=== PATIENT | female | born 2005 | race Caucasian/White ===

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

== ENCOUNTER 2023-08-30 11:57 | Emergency (ER) | payer BC, OTHER, SELFPAY ==
[2023-08-30 12:10] VITALS: BP 114/63; PULSE 70; RESP 19; TEMP 36.7; O2SAT 97; BMI 30.7
--- NOTE | 2023-08-30 12:14 | XR_ITS ---
FINAL REPORT CLINICAL HISTORY: FELL rolled foot, felt pop FINDINGS: Left foot Three views were obtained. There is no acute fracture or dislocation. The joint spaces appear normal. No soft tissue abnormality is identified. IMPRESSION: No acute process. Reviewed, Interpreted and Dictated by Jose A Valladares MD Transcribed by Zari Calvillo Authenticated and [facility]
--- NOTE | 2023-08-30 12:23 | ED_ITS ---
Discharge Plan Disposition Patient Disposition: Home, Self-Care Condition: Good Prescriptions Prescriptions: No Action medroxyprogesterone [Depo-Provera] 150 mg/mL syringe 150 mg IM [id number] Qty: 1 3RF quetiapine [Seroquel] 100 mg tablet 100 mg PO QHS Qty: 90 0RF sertraline [Zoloft] 100 mg tablet 150 mg PO DAILY Qty: 45 0RF Referrals Follow up/Referrals: Niyah Choi APRN [Primary Care Provider] - See instructions Rowena Zepeda DPM [Staff Physician] - See instructions Activity Restrictions/Add. Instructions Additional Instructions/Restrictions: Rest the extremity, Wear the ramiro wrap for compression, Elevate the extremity as tolerated while you are resting. Take ibuprofen for pain. I sent in a prescription to your pharmacy. Follow up with Dr. Zepeda (podiatry). I put in a referral but you need to call her office and schedule an appointment. Follow up with your regular doctor. GO TO THE ER FOR ANY WORSENING SYMPTOMS Clinical Impressions Clinical Impression: Sprain of left foot, Left foot pain Stand Alone Forms Stand Alone Forms: Work/School Release Instructions Patient Instructions: DI for Foot Sprain Discharge ED Provider: Corbin Garcia [facility] General Stated complaint: ao fell and has left leg pain 08/28 Mode of Arrival: Ambulatory Source of Information: Patient Limitations: No Limitations Time Seen by Provider: 08/30/23 12:23 Description of Symptoms (Recalled from Triage Doc. by RN): PATIENT STATES SHE WAS ROUGH-HOUSING YESTERDAY AND FELL, LANDING ON HER BACK WITH HER LEG BEHIND HER. C/O PAIN, SWELLING AND BRUISING TO LEFT FOOT HEENT Symptoms (Recalled from RN notes): No Resp Symptoms (Recalled from RN notes): No Skin Symptoms (Recalled from RN notes): No MS Symptoms (Recalled from RN notes): Yes Functional Status (Recalled from RN notes): WNL History of Present Illness Provider Complaint: She states that she fell yesterday and twisted her left foot back up beneath her. Since then she has had left foot pain and left ankle pain. She states that walking on the foot makes her pain worse. Related Data Previous Rx's Medication Instructions Recorded medroxyprogesterone 150 mg/mL 150 mg IM [id number] #1 mL 06/15/22 intramuscular syringe (Depo-Provera) quetiapine 100 mg tablet (Seroquel) 100 mg PO QHS #90 tabs 08/02/23 sertraline 100 mg tablet (Zoloft) 150 mg (1.5 x 100 mg) PO DAILY #45 08/02/23 tabs Allergies Allergy/AdvReac Type Severity Reaction Status Date / Time cefdinir [From Omnicef] Allergy Verified 08/06/22 17:08 codeine Allergy Verified 08/06/22 17:08 Worker's Comp Is this a Worker's Comp case?: No PFSH [facility] Disclaimer: The information contained in this section may have been updated after the patient was seen, as this information can be updated by other users. Medical History Generalized anxiety disorder Migraines Mood disorder Social History Smoking Status: Never smoker alcohol intake: never substance use type: marijuana (none in 8 months) current occupational status: other Travel in the last 8 weeks: None number of children: 0 ROS Obtained: Yes All systems reviewed & no additional complaints except as documented Constitutional Constitutional: Denies chills and Denies fever(s) Eyes Eyes: Denies eye discharge ENT Ears, Nose, Mouth, and Throat: Denies dizziness, Denies otalgia and Denies sore throat Cardiovascular Cardiovascular: Denies chest pain Respiratory Respiratory: Denies shortness of breath, Denies chest congestion, Denies cough, Denies stridor and Denies wheezing Gastrointestinal Gastrointestingal: Denies nausea or vomiting Musculoskeletal Musculoskeletal: Reports as per HPI Integumentary/Breasts Skin/Breast: Denies redness, Denies rash and Denies wounds Neurologic Neurologic: Denies dizziness and Denies paresthesias Allergic/Immunologic Allergic/Immunologic: Denies wheezing Physical Exam General General appearance: alert and in no apparent distress Head Head exam: atraumatic, normocephalic and normal inspection Eye Eye exam: Present normal appearance, PERRL and EOMI ENT ENT exam: Present normal exam, normal oropharynx, mucous membranes moist, TM's normal bilaterally and normal external ear exam Neck Neck exam: Present normal inspection, full ROM and trachea midline; Absent meningismus or lymphadenopathy Chest Chest inspection: Present normal inspection and symmetric chest wall rise; Absent tenderness Respiratory Respiratory exam: Present normal lung sounds bilaterally; Absent respiratory distress Cardiovascular Cardiovascular exam: Present regular rate and normal rhythm; Absent JVD Abdominal Exam Abdominal exam: Present soft and normal bowel sounds; Absent distention, tenderness or guarding Extremities Exam Extremities exam: Present normal capillary refill; Absent calf tenderness Expanded Lower Extremity Exam Left: Knee exam: Present normal inspection, full ROM and knee extension intact; Absent tenderness Lower leg exam: Present normal inspection, full ROM and Achilles tendon intact; Absent tenderness or Homans' sign Ankle exam: Present full ROM, tenderness and swelling; Absent abrasion, laceration, ecchymosis, deformity, crepitus, dislocation, erythema, tenderness over talofibular lig or anterior draw sign Foot/toe exam: Present full ROM, tenderness and swelling; Absent abrasion, laceration, ecchymosis, deformity, crepitus, dislocation, erythema, amputation, puncture wound, foreign body, calcaneal tenderness, tenderness at base of 5th m etatarsal, nail avulsion or subungual hematoma Neurovascular/Tendon exam: Present normal capillary refill, normal 2-point discrimination and normal fine/light touch; Absent pulse deficit, motor deficit, sensory deficit, tendon deficit, extremity cold to touch or pallor Gait: observed and normal Back Exam Back exam: Present normal inspection; Absent tenderness Neurological Exam Neurological exam: Present alert and oriented X3 Psychiatric Psychiatric exam: Present normal affect and normal mood Skin Skin exam: Present warm, dry, intact and normal color Lymphatic Lymphatic Findings: no adenopathy Medical Decision Making Medical Records Medical records reviewed: No I reviewed the patient's medical records. Michael Inquiry Pt receiving controlled substance: No Vital Signs: 08/30/23 12:10 Temperature 98.0 F Temperature Source Oral Pulse Rate [Left Brachial] 70 Respiratory Rate 19 Blood Pressure [Left Arm] 114/63 Blood Pressure Mean [Left Arm] 80 Blood Pressure Source [Left Arm] Automatic Cuff Blood Pressure Position [Left Arm] Sitting 02 Sat by Pulse Oximetry 97 Oxygen Delivery Method Room Air Orders (Tests/Meds): ORDERS Category Date Time Status Foot XR left minimum 3 views [XR foot LT min 3V] Stat Exams 08/30/23 12:14 Ordered Radiology Data #1: Image(s): Foot/Toes Image Reviewed: Yes I reviewed the patient's radiology image and Yes I have reviewed radiologist's interpretation Preliminary Findings: Normal/NAD and No Fracture Seen FINAL REPORT CLINICAL HISTORY: FELL rolled foot, felt pop FINDINGS: Left foot Three views were obtained. There is no acute fracture or dislocation. The joint spaces appear normal. No soft tissue abnormality is identified. IMPRESSION: No acute process. Reviewed, Interpreted and Dictated by Jose A Valladares MD Transcribed by Zari Calvillo Authenticated and [facility] Procedures Risk/Benefits of Procedure(s) Were Explained: Yes Orthopedic Splinting/Casting Injury #1: Side: left Lower Extremity Injury Location: ankle and foot Lower Extremity Immobilizer: Ramiro wrap and applied by nurse/dr joshi Post Cast/Splinting Neuro Status: intact and no change Post Cast/Splinting Vasc Status: intact and no change
[2023-08-30 13:45] VITALS: BP 114/63; PULSE 70; RESP 19; TEMP 36.7; O2SAT 97
== END 2023-08-30 13:48 | disposition home or self-care (01) ==
PROVIDERS: Emergency Provider Nurse Practitioner Family; PCP Nurse Practitioner
DX: M79.672 Pain in left foot (principal); S93.602A Unspecified sprain of left foot, initial encounter; X50.1XXA Overexertion from prolonged static or awkward postures, initial encounter
CPT/HCPCS: 73630; 99212; 99214; G0463

== ENCOUNTER 2023-10-10 12:07 | Emergency (ER) | payer BC, OTHER, SELFPAY ==
[2023-10-10 12:20] VITALS: BP 118/80; PULSE 85; RESP 20; TEMP 36.9; O2SAT 100; BMI 29.2
--- NOTE | 2023-10-10 12:27 | EXP.UTC ---
Discharge Plan Disposition Patient Disposition: Home, Self-Care Condition: Good Prescriptions Prescriptions: No Action medroxyprogesterone [Depo-Provera] 150 mg/mL syringe 150 mg IM [id number] Qty: 1 3RF sertraline [Zoloft] 100 mg tablet 150 mg PO DAILY Qty: 45 0RF quetiapine [Seroquel] 100 mg tablet 100 mg PO QHS Qty: 90 0RF Referrals Follow up/Referrals: Niyah Choi APRN [Primary Care Provider] - See instructions Activity Restrictions/Add. Instructions Additional Instructions/Restrictions: *Monitor Temp, Over the counter Motrin or Tylenol as directed/as needed Tylenol every 4 hours and Motrin every 6 hours (as long as your family doctor has told you that you can take it) for fever or pain. and straight to ER if unable to lower temp less than 101.0 after medication given *Warm salt water gargles may help to soothe the throat *Throat Lozenges? *Warm fluids like tea with honey may help to soothe the throat? *Sleep elevated *Humidifier/Vaporizer Your throat swab was sent for culture. Those results are typically sent to your primary care. Be sure to follow up in 2-3 days with your family doctor/primary care physician if no improvement so they can review those result and treat if necessary. If you don?t have a primary care doctor, I recommend you get one but in the mean time, you will have to return to a walk in clinic Follow up IMMEDIATELY for new or worsening symptoms or no Noticeable improvement over the next 48-72 hours. 911 for difficulty breathing or swallowing Clinical Impressions Clinical Impression: Viral upper respiratory infection Stand Alone Forms Stand Alone Forms: Work/School Release Instructions Patient Instructions: Sore Throat Discharge ED Provider: Marium Smith [facility] General Stated complaint: fever, sore throat, body aches Mode of Arrival: Ambulatory Source of Information: Patient Limitations: No Limitations Time Seen by Provider: 10/10/23 12:27 Description of Symptoms (Recalled from Triage Doc. 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 States that she started yesterday with sore throat body aches and headache and today she wasnt feeling any better so she came in to get checked Related Data Previous Rx's Medication Instructions Recorded medroxyprogesterone 150 mg/mL 150 mg IM [id number] #1 mL 06/15/22 intramuscular syringe (Depo-Provera) quetiapine 100 mg tablet (Seroquel) 100 mg PO QHS #90 tabs 09/10/23 sertraline 100 mg tablet (Zoloft) 150 mg (1.5 x 100 mg) PO DAILY #45 09/10/23 tabs Allergies Allergy/AdvReac Type Severity Reaction Status Date / Time cefdinir [From Omnicef] Allergy Verified 08/06/22 17:08 codeine Allergy Verified 08/06/22 17:08 Worker's Comp Is this a Worker's Comp case?: No [facility] Disclaimer: The information contained in this section may have been updated after the patient was seen, as this information can be updated by other users. Medical History (Updated 10/10/23 @ 12:35 by Marium Smith APRN) Urinary tract infection Kidney stone Depression Migraines Generalized anxiety disorder Mood disorder Surgical History (Updated 10/10/23 @ 12:30 by Eliza Panda RN) History of tympanostomy tube placement Social History Smoking Status: Never smoker alcohol intake: never substance use type: marijuana (none in 8 months) current occupational status: other Travel in the last 8 weeks: None number of children: 0 ROS Obtained: Yes All systems reviewed & no additional complaints except as documented and Yes Systems reviewed as appropriate & no additional complaints except as documented Constitutional Constitutional: Reports system reviewed and no additional complaints, except as documented, Reports as per HPI, Reports body ache, Reports fever(s) and Reports headache(s) ENT Ears, Nose, Mouth, and Throat: Reports system reviewed and no additional complaints, except as documented, Reports as per HPI, Reports headache(s) and Reports sore throat Cardiovascular Cardiovascular: Reports system reviewed and no additional complaints, except as documented and Reports as per HPI Respiratory Respiratory: Reports system reviewed and no additional complaints, except as documented and Reports as per HPI Gastrointestinal Gastrointestingal: Reports system reviewed and no additional complaints, except as documented and as per HPI Neurologic Neurologic: Reports headache(s) Physical Exam General General appearance: alert and in no apparent distress ENT ENT exam: Present mucous membranes moist Expanded ENT Exam Nose exam: Absent sinus tenderness Throat exam: Present other (mild pharyngeal erythema noted); Absent tonsillar exudate Respiratory Respiratory exam: Present normal lung sounds bilaterally; Absent respiratory distress or wheezes Cardiovascular Cardiovascular exam: Present regular rate, normal rhythm and normal heart sounds Neurological Exam Neurological exam: Present alert, oriented X3 and normal gait Medical Decision Making Michael Inquiry Pt receiving controlled substance: No Michael was queried for this patient: No Vital Signs: 10/10/23 12:20 Temperature 98.5 F Temperature Source Oral Pulse Rate [Left Brachial] 85 Respiratory Rate 20 Blood Pressure [Left Arm] 118/80 Blood Pressure Mean [Left Arm] 92 Blood Pressure Source [Left Arm] Automatic Cuff Blood Pressure Position [Left Arm] Sitting 02 Sat by Pulse Oximetry 100 Oxygen Delivery Method Room Air Lab Data Lab results reviewed: Yes I reviewed the patient's lab results.
[2023-10-10 12:34] VITALS: BP 118/80; PULSE 85; RESP 20; TEMP 36.9; O2SAT 100
[2023-10-10 12:34] LABS: UTC Influenza A Antigen Negative (Negative); UTC Influenza B Antigen Negative (Negative); UTC Strep Screen (Rapid) Negative (Negative)
== END 2023-10-10 12:39 | disposition home or self-care (01) ==
PROVIDERS: Emergency Provider Nurse Practitioner; PCP Nurse Practitioner
DX: R51.9 Headache, unspecified (principal); R07.0 Pain in throat; R50.9 Fever, unspecified; J06.9 Acute upper respiratory infection, unspecified; B34.9 Viral infection, unspecified
CPT/HCPCS: 87804; 87880; 99212; 99213; G0463

== ENCOUNTER 2023-10-23 16:54 | Outpatient (CLI) | payer BC, OTHER, SELFPAY ==
[2023-10-23 17:18] LABS: Basophils # 0.1 K/mm3 (0-0.2); Eosinophils # 0.5 K/mm3 (0.0-0.4); Eosinophils % 6.5 % (0.1-12.0); Hemoglobin 13.3 g/dL (12.2-16.2); Lymphocytes # 2.6 K/mm3 (0.7-4.5); Lymphocytes % 33.5 % (10-50); Mean Corpuscular HGB Conc 33.3 g/dL (31.8-35.4); Mean Corpuscular Hemoglobin 27.5 pg (27.0-31.2); Mean Corpuscular Volume 82.7 fl (81-99); Mean Platelet Volume 9.1 fl (7.4-10.4); Monocytes # 0.3 K/mm3 (0.1-1.0); Monocytes % 4.3 % (1.7-9.3); Neutrophils # 4.2 K/mm3 (1.8-7.8); Neutrophils % 54.7 % (37.0-80.0); Platelet Count 136 K/mm3 (142-424); Red Blood Count 4.84 M/mm3 (4.20-5.40); White Blood Count 7.7 K/mm3 (4.5-13.0)
[2023-10-23 17:52] LABS: Alanine Aminotransferase 22 U/L (12-78); Albumin/Globulin Ratio 1.5 (1.1-1.8); Alkaline Phosphatase 88 U/L (38-126); Aspartate Amino Transferase 26 U/L (14-36); Bilirubin,Total 0.5 mg/dl (0.2-1.3); Blood Urea Nitrogen 15 mg/dl (7-17); Calcium 9.3 mg/dl (8.4-10.2); Carbon Dioxide 24 mmol/L (22.0-30.0); Chloride 106 mmol/L (98-107); Estimated Glomerular Filt Rate 107 ml/min (>60); GFR (African American) 129 ML/MIN (>60); Globulin 2.7 g/dL (1.3-3.2); Glucose 103 mg/dl (74-100); Sodium 140 mmol/L (136-145); Total Protein,Serum 6.7 g/dl (6.3-8.2)
[2023-10-23 18:40] LABS: Vitamin B12 385 pg/mL (239-931)
[2023-10-23 19:13] LABS: Iron 77 ug/dL (37-170)
[2023-10-23 19:23] LABS: Total Iron Binding Capacity 387 ug/dL (265-497)
[2023-10-23 19:31] LABS: Free Thyroxine Index 2.8 ug/dL (5.93-13.13); T4 (Thyroxine) 8.1 ug/dl (5.53-11.0); Triiodothryronine (T3) Uptake 35 % (23.5-40.5)
[2023-10-23 19:45] LABS: Thyroid Stimulating Hormone 0.97 uIU/mL (0.465-4.68)
[2023-10-25 08:20] LABS: Thyroid Peroxidase Antibodies <9 IU/mL (0-34)
[2023-10-31 09:13] LABS: 1,25 Dihydroxy Vitamin D 74 pg/mL (.); 1,25-Dihydroxy, Vitamin D-2 <10 pg/mL (.); 1,25-Dihydroxy, Vitamin D-3 74 pg/mL (.)
== END 2023-10-23 23:59 | disposition home or self-care (01) ==
LOC: LAB.DROPOF 16:55
PROVIDERS: PCP Nurse Practitioner Psychiatric/Mental Health; Visit Provider Nurse Practitioner Psychiatric/Mental Health
DX: Z00.00 Encounter for general adult medical examination without abnormal findings (principal); Z79.899 Other long term (current) drug therapy; R53.83 Other fatigue; E67.3 Hypervitaminosis D
CPT/HCPCS: 80053; 82607; 82652; 83036; 83540; 83550; 84436; 84443; 84479; 85025; 86376

== ENCOUNTER 2024-06-06 12:41 | Emergency (ER) | payer BC, OTHER, SELFPAY ==
[2024-06-06 14:40] VITALS: BP 116/81; PULSE 79; RESP 20; TEMP 36.6; O2SAT 99; BMI 29.9
[2024-06-06 14:58] LABS: UTC Strep Screen (Rapid) Negative (Negative)
--- NOTE | 2024-06-06 15:06 | EXP.UTC ---
Discharge Plan Disposition Patient Disposition: Home, Self-Care Condition: Good Prescriptions Prescriptions: New guaifenesin 400 mg tablet 400 mg PO Q4H PRN (Reason: cough) Qty: 30 1RF No Action medroxyprogesterone [Depo-Provera] 150 mg/mL syringe 150 mg IM [id number] Qty: 1 3RF quetiapine [Seroquel] 100 mg tablet See Rx Instructions PO QHS Qty: 135 0RF Rx Instructions: take 1.5 tablets (150mg) orally every day at bedtime; sertraline [Zoloft] 100 mg tablet 150 mg PO DAILY Qty: 45 2RF Referrals Follow up/Referrals: Miryam Cotto APRN [Primary Care Provider] - See instructions Activity Restrictions/Add. Instructions Additional Instructions/Restrictions: Take medication as prescribed. Increase fluids and rest. Call back for results this evening or tomorrow morning for results. [phone] for the [facility]. Follow up with PCP if symptoms persist or worsen. Clinical Impressions Clinical Impression: Viral upper respiratory infection Stand Alone Forms Stand Alone Forms: Work/School Release Instructions Patient Instructions: DI for Viral Upper Respiratory Infection -- Adult Print Language Print Language: Syriac Discharge ED Provider: Christa Maradiaga [facility] General Stated complaint: covid test Mode of Arrival: Ambulatory Source of Information: Patient Limitations: No Limitations Time Seen by Provider: 06/06/24 15:06 Description of Symptoms (Recalled from Triage Doc. by RN): PATIENT C/O BODY ACHES, COUGH, RUNNY NOSE, SORE THROAT, HEADACHE AND DIZZINESS SINCE YESTERDAY AFTERNOON HEENT Symptoms (Recalled from RN notes): Yes Resp Symptoms (Recalled from RN notes): Yes Skin Symptoms (Recalled from RN notes): No MS Symptoms (Recalled from RN notes): No Functional Status (Recalled from RN notes): WNL History of Present Illness Provider Complaint: PATIENT C/O BODY ACHES, COUGH, RUNNY NOSE, SORE THROAT, HEADACHE AND DIZZINESS SINCE YESTERDAY AFTERNOON Related Data Previous Rx's ?Medication ?Instructions ?Recorded medroxyprogesterone 150 mg/mL 150 mg IM [id number] #1 mL 06/15/22 intramuscular syringe (Depo-Provera) quetiapine 100 mg tablet (Seroquel) See Rx Instructions PO QHS #135 01/31/24 tabs sertraline 100 mg tablet (Zoloft) 150 mg (1.5 x 100 mg) PO DAILY #45 01/31/24 tabs guaifenesin 400 mg tablet 400 mg PO Q4H PRN cough #30 tabs 06/06/24 Allergies Allergy/AdvReac Type Severity Reaction Status Date / Time cefdinir (From Omnicef) Allergy Hives Verified 06/06/24 14:52 codeine Allergy Hives Verified 06/06/24 14:52 Worker's Comp Is this a Worker's Comp case?: No PFSH [facility] Disclaimer: The information contained in this section may have been updated after the patient was seen, as this information can be updated by other users. Medical History (Updated 06/06/24 @ 15:16 by Christa Maradiaga APRN) Urinary tract infection Kidney stone Depression Migraines Generalized anxiety disorder Mood disorder Surgical History (Updated 10/10/23 @ 12:30 by Eliza Panda RN) History of tympanostomy tube placement Social History Smoking Status: Never smoker alcohol intake: never substance use type: marijuana (none in 8 months) current occupational status: other Travel in the last 8 weeks: None number of children: 0 Have you lived/traveled outside [place] in past 30 days?: No Contact w/someone who lives/traveled outside US past 30 days?: No Exposure to someone with infectious disease in past 14 days?: Yes Do you have a fever (greater than 100.4 F or 38 C)?: No Have you tested positive for COVID-19: No Exposed to someone with COVID-19 in past 14 days?: Yes Do you have a sore throat?: No Do you have a cough?: No Do you have any weakness?: No Do you have any diarrhea?: No Are you experiencing any unusual bleeding?: No Do you have any muscle aches/pain?: No Do you have any abdominal pain?: No Are you experiencing loss of taste or smell?: No ROS Obtained: Yes All systems reviewed & no additional complaints except as documented Constitutional Constitutional: Reports system reviewed and no additional complaints, except as documented and Reports headache(s) Eyes Eyes: Reports system reviewed and no additional complaints, except as documented ENT Ears, Nose, Mouth, and Throat: Reports system reviewed and no additional complaints, except as documented, Reports dizziness, Reports headache(s), Reports nasal discharge and Reports sore throat Cardiovascular Cardiovascular: Reports system reviewed and no additional complaints, except as documented Respiratory Respiratory: Reports system reviewed and no additional complaints, except as documented and Reports non-productive cough Gastrointestinal Gastrointestingal: Reports system reviewed and no additional complaints, except as documented Genitourinary Female Genitourinary: Reports system reviewed and no additional complaints, except as documented Musculoskeletal Musculoskeletal: Reports system reviewed and no additional complaints, except as documented Integumentary/Breasts Skin/Breast: Reports system reviewed and no additional complaints, except as documented Neurologic Neurologic: Reports system reviewed and no additional complaints, except as documented, Reports dizziness and Reports headache(s) Endocrine Endocrine: Reports system reviewed and no additional complaints, except as documented Hematologic/Lymphatic Henatologic/Lymphatic: Reports system reviewed and no additional complaints, except as documented Allergic/Immunologic Allergic/Immunologic: Reports system reviewed and no additional complaints, except as documented Physical Exam General General appearance: alert and in no apparent distress Head Head exam: atraumatic Eye Eye exam: Present normal appearance Expanded ENT Exam External ear exam: Present normal external inspection Nose exam: Present sinus tenderness (frontal) Nasal speculum exam: Bilateral: normal Mouth exam: Present normal external inspection Teeth exam: Present normal inspection Throat exam: Present tonsillar erythema Neck Neck exam: Present normal inspection; Absent lymphadenopathy Chest Chest inspection: Present normal inspection and symmetric chest wall rise Respiratory Respiratory exam: Present normal lung sounds bilaterally Cardiovascular Cardiovascular exam: Present regular rate and normal rhythm Abdominal Exam Abdominal exam: Present soft Extremities Exam Extremities exam: Present normal inspection Back Exam Back exam: Present normal inspection Neurological Exam Neurological exam: Present alert and oriented X3 Psychiatric Psychiatric exam: Present normal affect and normal mood Skin Skin exam: Present warm, dry and intact Lymphatic Lymphatic Findings: no adenopathy Medical Decision Making Medical Records Screening: Per USPSTF and CDC recommendations, given the prevalence of disease in our region, it is our hospital?s policy to screen for HIV and viral Hepatitis for all patients aged 18 and over and those with ongoing risk factors. Michael Inquiry Pt receiving controlled substance: No Michael was queried for this patient: No Vital Signs: 06/06/24 14:40 Temperature 97.9 F Temperature Source Oral Pulse Rate [Left Brachial] 79 Respiratory Rate 20 Blood Pressure [Left Arm] 116/81 Blood Pressure Mean [Left Arm] 92 Blood Pressure Source [Left Arm] Automatic Cuff Blood Pressure Position [Left Arm] Sitting 02 Sat by Pulse Oximetry 99 Oxygen Delivery Method Room Air Lab Data Lab results reviewed: Yes I reviewed the patient's lab results. Lab Results 06/06/24 14:48: Strep Scn Rapid Clinic Negative Orders (Tests/Meds): ORDERS Category Date Time Status Rapid PCR Covid and Flu A/B Stat Lab 06/06/24 14:57 Ordered Strep Screen Confirmation Stat Micro 06/06/24 14:48 Received
[2024-06-06 15:17] VITALS: BP 116/81; PULSE 79; RESP 20; TEMP 36.6; O2SAT 99
[2024-06-06 18:06] LABS: Influenza A, PCR Not Detected (NotDetected); Influenza B, PCR Not Detected (NotDetected)
[2024-06-06 19:37] LABS: Coronavirus 19, PCR Detected (NotDetected)
== END 2024-06-06 15:19 | disposition home or self-care (01) ==
PROVIDERS: Emergency Provider Nurse Practitioner Family; PCP Nurse Practitioner Psychiatric/Mental Health
DX: J06.9 Acute upper respiratory infection, unspecified (principal)
CPT/HCPCS: 87636; 87880; 99213; G0381

== ENCOUNTER 2025-04-24 23:09 | Emergency (ER) | payer BC, SELFPAY ==
[2025-04-24 23:20] VITALS: BP 142/105; PULSE 108; RESP 18; TEMP 36.6; O2SAT 100; BMI 26.5
--- NOTE | 2025-04-24 23:20 | CT_ITS ---
PROCEDURE INFORMATION: Exam: CT Abdomen And Pelvis With Contrast Exam date and time: 04/25/2025 12:23 AM Age: 20 years old Clinical indication: Other: Severe cramping and heavy bleeding with period TECHNIQUE: Imaging protocol: Computed tomography of the abdomen and pelvis with contrast. Radiation optimization: All CT scans at this facility use at least one of these dose optimization techniques: automated exposure control; mA and/or kV adjustment per patient size (includes targeted exams where dose is matched to clinical indication); or iterative reconstruction. Contrast material: ISOVUE; Contrast volume: 75 ml; Contrast route: IV; COMPARISON: CT ABDOMEN PELVIS W CON 06/18/2021 10:55 PM FINDINGS: Lungs: No acute finding. Liver: Normal. No mass. Gallbladder and biliary ducts: Normal. No calcified stones. No ductal dilation. Pancreas: Normal. No ductal dilation. Spleen: Normal. No splenomegaly. Adrenal glands: Normal. No mass. Kidneys and ureters: Normal. No hydronephrosis. Stomach and bowel: Unremarkable. No obstruction. No mucosal thickening. Appendix: No evidence of appendicitis. Intraperitoneal space: Unremarkable. No free air. No significant fluid collection. Vasculature: Unremarkable. No abdominal aortic aneurysm. Lymph nodes: Unremarkable. No enlarged lymph nodes. Urinary bladder: Unremarkable as visualized. Reproductive: Unremarkable as visualized. Bones/joints: Unremarkable. No acute fracture. Soft tissues: Unremarkable. IMPRESSION: No acute findings.
[2025-04-24 23:21] LABS: Microscopic, Urine URINE MICROSCOPIC (MICROSCOPIC)
--- OUTSIDE RECORDS SUMMARY | 2025-04-24 23:26 | XMS_ITS | Data Portability ---
Author Organization [place] LU[place] Tamayo P[facility]MAN CLOSED Address [address] [place] [address] Care Team Providers Care Ethernet Network Architect Name Role Phone SANTOS MIRELES Primary Care Provider TRINIDAD GRANT Urologist Assessment Encounter Date Assessment Date Assessment LastModified by Organization Details LastModified Time 03/12/2017 03/12/2017 SURGERY DATE: 03/12/2017 PREOPERATIVE DIAGNOSIS: Chronic tonsillitis. POSTOPERATIVE DIAGNOSIS: Chronic tonsillitis. PROCEDURE: Tonsillectomy using the PEAK PlasmaBlade device. SURGEON: Rosa Phillips III, M.D. PREOPERATIVE INDICATIONS: Joan Delgado is a 12-year-old who, unfortunately, has had problems with chronic strep tonsillitis over the last few years. She presents today for the above procedure after informed consent was obtained. DESCRIPTION OF PROCEDURE PERFORMED: The patient was brought to the operating room and placed under general endotracheal anesthesia. Her neck was placed in the Heaven position and the McIvor mouth gag was used to better expose the oral cavity and oropharynx. Attention was then turned toward the right tonsil. The right tonsil was dissected free from the underlying fascial attachments using the PEAK plasma blade device. This was also done on the left side in similar fashion. Any bleeding spots were spot coagulated. The wound was then copiously irrigated with saline solution. No evidence of any further bleeding was noted. I then injected 0.5% Marcaine with epinephrine into the tonsil beds, approximately 4 mL. Stomach contents were then aspirated using suction. The procedure was terminated. The patient was taken to the recovery room in good condition. The estimated blood loss was 50 mL. Of note, she did have prominent vasculature in the superior poles of both tonsils. These were cauterized using the suction cautery attachment. There was no evidence any further bleeding at the conclusion of the procedure. Her stomach contents were aspirated clear. She did have 0.25% Marcaine with epinephrine injected in the tonsil beds, approximately 3 mL total. [email or web address] Not available 03/12/2017 17:26:56 02/17/2022 02/17/2022 Frequent headaches, now daily, likely migrainous. Will arrange for brain MRI b/c these are now daily and she had no REYES prior to six mos ago. Will try topiramate for prevention at a low dose. Possible SE discussed. She did not tolerate triptans. Will try Nurtec. I gave her coupon for this. f/u 2-3 mos. [email or web address] Not available 02/17/2022 08:57:20 Plan of Treatment Reminders Order Date Submit Date Provider Last Modified By Organization Details Last Modified Time Details Appointments None recorded. Lab urinalysis panel, auto 2023 024 [facility], [address], [address], [place], [address], 4 08:09:31 culture, urine 2023 024 [facility], [address] [place] [address], [address], 4 10:24:51 Referral None recorded. Procedures None recorded. Surgeries None recorded. Imaging US, retroperit oneum, limited 2023 024 [email or web address] [facility]iology [facility], [address] [place], [address], 4 16:27:03 MRI, brain, w/wo contrast 2021 022 [email or web address] 4 [facility] (Scheduling), [address], [place], [address], 2 08:00:07 Medication Orders Topamax 25 mg tablet 2021 022 [facility] #[id number], [address] [facility] [address] [place], [id number], 2 08:45:22 Nurtec ODT 75 mg disintegra ting tablet 2021 022 [id number], [address] [facility] [address] [place], [id number], 2 15:20:44 Patient TargetsNo targets recorded. Patient Instructions Encounter Date Encounter Id Patient Instructions Last Modified By Organization Details Last Modified Time 01/18/2017 [id number] 1. Completion Tonsillectomy recommended. Full risks, complications, and benefits of operative versus non-operative intervention have been thoroughly discussed. Understanding was expressed, informed consent given, and we will proceed with the discussed operative treatment plan. There were no questions for me at the end of the office visit. 2. F/U postoperatively. [email or web address] Not available 01/18/2017 12:26:20 Reason for Referral None Reported. Results Created Date Observation Date Name Description Value Unit Range Abnormal Flag Note LastModifiedBy Organization Detail LastModifiedTime 03/12/20 17 03/12/2017 [facility] pathology procedure SEE BELOW Depar tment of Patho logy Final Surgi tiago Patho logy Repor t NAME: JOAN DUNN ND PATH. :[id number] Copy to: Diagn osis: A) Right tonsi l: React eduardo lymph oid hyper plasi a. B) Left tonsi l: React eduardo lymph oid hyper plasi a. SOURC E OF SPECI MEN: TONSI L, RIGHT TONSI L, LEFT CLINI TIAGO INFOR MATIO N: CHRON IC TONSI LLITI S Gross Descr iptio n: A) Recei eloina in forma joanna label ed with the patie nt's name and desig nated as righ t tonsi l is a tonsi llect godfrey speci men (2 x 1.5 x 1.2 cm) with a cereb rifor m surfa ce and a caute rized resec tion cayetano n. Secti oning demon strat es a pink- carter glist ening cut surfa ce. Repre senta tive secti ons are submi tted in casse tte A. B) Recei eloina in forma joanna label ed with the patie nt's name and desig nated as left tonsi l is a tonsi llect godfrey speci men (2.1 x 1.6 x 1.4 cm) with a cereb rifor m surfa ce and a caute rized resec tion cayetano n. Secti oning demon strat es a pink- carter glist ening cut surfa ce. Repre senta tive secti ons are submi tted in casse tte B. CM 03/12 02:09 PM Micro scopi c Descr iptio n: There is no evide nce of acute or granu lomat ous infla mmati on or tumor . FAUSTO Owen M.D. Selin d Out Date: 03/13 09:52 NOTE: This repor t was prepa red using voice -ashley gniti on softw are and may conta in unint ended word subst ituti ons, addit ions or delet ions. Not Available [facility] [address] [place], [address], 03/13/2017 09:53:49 07/19/19 24 07/19/2023 URINE CULTU RE escherichia coli Organi sm: Escher ichia coli Not Available [facility] [address] [place], [address], 07/21/2023 16:46:14 07/19/19 24 07/21/2023 URINE CULTU RE urine culture abnormal COLON Y COUNT : 10,00 0 - 100,0 00 CFU/M L Three or more isola lea; mixed skin kris . ISOLA TE #1 COLON Y COUNT : < 10,00 0 CFU/M L Proba ble Gram Negat eduardo Bacil hossein. ID and sensi tivit y in progr ess. See Wayzata te Resul t(s) Below Esche vinod a coli Not Available [facility] [address] [place] [address], [address], 07/21/2023 16:46:14 07/19/19 24 07/21/2023 URINE CULTU RE amox/K clav'ate(C) <=8/4 ug/mL susceptib le Not Available [facility] [address] [place] [address], [address], 07/21/2023 16:46:14 07/19/19 24 07/21/2023 URINE CULTU RE ampicillin >16 ug/mL resistant Not Available [facility] [address] [place] [address], [address], 07/21/2023 16:46:14 07/19/19 24 07/21/2023 URINE CULTU RE cefazolin 4 ug/mL susceptib le Not Available [facility] [address] [place] [address], [address], 07/21/2023 16:46:14 07/19/19 24 07/21/2023 URINE CULTU RE ceftazidime <=1 ug/mL susceptib le Not Available [facility] [address] [place] [address], [address], 07/21/2023 16:46:14 07/19/19 24 07/21/2023 URINE CULTU RE ceftriaxone <=1 ug/mL susceptib le Not Available [facility] [address] [place] [address], [address], 07/21/2023 16:46:14 07/19/19 24 07/21/2023 URINE CULTU RE cefuroxime <=4 ug/mL susceptib le Not Available [facility] [address] [place] [address], [address], 07/21/2023 16:46:14 07/19/19 24 07/21/2023 URINE CULTU RE ciprofloxaci n <=0.25 ug/mL susceptib le Not Available [facility] [address] [place] [address], [address], 07/21/2023 16:46:14 07/19/19 24 07/21/2023 URINE CULTU RE gentamicin <=4 ug/mL susceptib le Not Available [facility] [address] [place] [address], [address], 07/21/2023 16:46:14 07/19/19 24 07/21/2023 URINE CULTU RE imipenem <=1 ug/mL susceptib le Not Available [facility] [address] [place] [address], [address], 07/21/2023 16:46:14 07/19/19 24 07/21/2023 URINE CULTU RE levofloxacin <=0.5 ug/mL susceptib le Not Available [address], [address], 07/21/2023 16:46:14 07/19/19 24 07/21/2023 URINE CULTU RE nitrofuranto in <=32 ug/mL susceptib le Not Available [address], [address], 07/21/2023 16:46:14 07/19/19 24 07/21/2023 URINE CULTU RE piperacillin /martha <=16 ug/mL susceptib le Not Available [facility] [address] [place] [address], [address], 07/21/2023 16:46:14 07/19/19 24 07/21/2023 URINE CULTU RE tetracycline >8 ug/mL resistant Not Available [address], [address], 07/21/2023 16:46:14 07/19/19 24 07/21/2023 URINE CULTU RE tobramycin <=2 ug/mL susceptib le Not Available [address], [address], 07/21/2023 16:46:14 07/19/19 24 07/21/2023 URINE CULTU RE trimeth/sulf a >2/38 ug/mL resistant Not Available [facility] [address] [facility], [place], [address], 07/21/2023 16:46:14 07/19/19 24 07/19/2023 urina lysis panel , auto Unknown Analyte Clean Catch Not Available [facility] [address], [place], [address], 07/19/2023 16:24:05 07/19/19 24 07/19/2023 urina lysis panel , auto Unknown Analyte Yellow Not Available [facility] [address], [place], [address], 07/19/2023 16:24:05 07/19/19 24 07/19/2023 urina lysis panel , auto Unknown Analyte Cloudy Not Available [facility] [address], [place], [address], 07/19/2023 16:24:05 07/19/19 24 07/19/2023 urina lysis panel , auto Unknown Analyte 1.020 Not Available [facility] [address] [place] [address] Rd [address], [place], [address], 07/19/2023 16:24:05 07/19/19 24 07/19/2023 urina lysis panel , auto Unknown Analyte 1.003- 1.035 Not Available [facility] [address] [place] [address] [address], [place], [address], 07/19/2023 16:24:05 07/19/19 24 07/19/2023 urina lysis panel , auto Unknown Analyte 8.0 Not Available Replaced by [facility] [address], [place], [address], 07/19/2023 16:24:05 07/19/19 24 07/19/2023 urina lysis panel , auto Unknown Analyte 5.0-8. 0 Not Available [facility] [address], [place], [address], 07/19/2023 16:24:05 07/19/19 24 07/19/2023 urina lysis panel , auto Unknown Analyte 25 Vanesa/ul Trace Not Available [facility] [address], [place], [address], 07/19/2023 16:24:05 07/19/19 24 07/19/2023 urina lysis panel , auto Unknown Analyte Negati ve Not Available [facility] [address], [place], [address], 07/19/2023 16:24:05 07/19/19 24 07/19/2023 urina lysis panel , auto Unknown Analyte Negati ve Not Available [facility] [address], [place], [address], 07/19/2023 16:24:05 07/19/19 24 07/19/2023 urina lysis panel , auto Unknown Analyte Negati ve Not Available [facility] [address], [place], [address], 07/19/2023 16:24:05 07/19/19 24 07/19/2023 urina lysis panel , auto Unknown Analyte Negati ve Not Available [facility] [address], [place], [address], 07/19/2023 16:24:05 07/19/19 24 07/19/2023 urina lysis panel , auto Unknown Analyte Negati ve Not Available [facility] [address], [place], [address], 07/19/2023 16:24:05 07/19/19 24 07/19/2023 urina lysis panel , auto Unknown Analyte Normal Not Available [facility] [address], [place], [address], 07/19/2023 16:24:05 07/19/19 24 07/19/2023 urina lysis panel , auto Unknown Analyte Normal Not Available [facility] [address], [place], [address], 07/19/2023 16:24:05 07/19/19 24 07/19/2023 urina lysis panel , auto Unknown Analyte 15 mg/dl (Sm) Not Available [facility] [address], [place], [address], 07/19/2023 16:24:05 07/19/19 24 07/19/2023 urina lysis panel , auto Unknown Analyte Negati ve Not Available [facility] [address], [place], [address], 07/19/2023 16:24:05 07/19/19 24 07/19/2023 urina lysis panel , auto Unknown Analyte 4 mg/dl Not Available [facility] [address], [place], [address], 07/19/2023 16:24:05 07/19/19 24 07/19/2023 urina lysis panel , auto Unknown Analyte Normal 1 mg/dl Not Available [facility] [address], [place], [address], 07/19/2023 16:24:05 07/19/19 24 07/19/2023 urina lysis panel , auto Unknown Analyte 1 mg/dl (+) Not Available [facility] [address], [place], [address], 07/19/2023 16:24:05 07/19/19 24 07/19/2023 urina lysis panel , auto Unknown Analyte Negati ve Not Available [facility] [address], [place], [address], 07/19/2023 16:24:05 07/19/19 24 07/19/2023 urina lysis panel , auto Unknown Analyte Trace Not Available [facility] [address], [place], [address], 07/19/2023 16:24:05 07/19/19 24 07/19/2023 urina lysis panel , auto Unknown Analyte Negati ve Not Available [facility] [address], [place], [address], 07/19/2023 16:24:05 09/02/27/2022 MRI, brain , w/wo contr ast No observ ation record ed. [email or web address] [place] [address], [place], [address], 03/01/2022 11:08:43 Result Notes None recorded. Problems Name Problem SNOMED Code Status Onset Date Resolution Date Notes Provider Name and Address Organization Details Recorded Time History of vesicoureteric reflux 095944864 Active 2023 LUCIANA HILLIARD JR, MD [address] [place] [address], [address], [facility] 4 11:05:45 Acute urinary tract infection 554263385 Active 2023 LUCIANA HILLIARD JR, MD [address] [place] [address], [address], [facility] 4 11:05:46 Recurrent urinary tract infection 657870910 Active 2023 LUCIANA HILLIARD JR, MD [address] [place] [address], [address], [facility] 4 11:06:06 Problem Notes None recorded. Procedures Surgical History Date Name Laterality Status Provider Name and Address Organization Details Recorded Time Tonsillectomy completed Jenise Sellers [facility] 01/17/2017 16:58:31 Kidney Surgery completed Shannon Vega [facility] 07/19/2023 15:16:19 Imaging Results None recorded. Procedure Notes None recorded. Medical Equipment None Reported. Allergies Allergen ID Allergen Name Allergen Category Reaction Reaction Severity Criticality Documentation Date Start Date Code Code System Note Provider Name and Address Organization Details Recorded Time 479257 codeine medicatio n Not available Not available Not available 04/28/20162012 2670 RxNorm Jenise tejada [facility] 7 16:57:35 934709 Omnicef medicatio n Not available Not available Not available 01/18/2017 38640 RxNorm Hetal Roe [facility] 7 12:01:32 Medications Name Sig Start Date Stop Date Status Note LastModified by Organization Details LastModified Time amoxicill in 500 mg capsule TAKE 1 CAPSULE BY MOUTH THREE TIMES DAILY UNTIL GONE active Not Available Not Available No t Available triazolam 0.25 mg tablet TAKE ONE TABLET BY MOUTH AT BEDTIME THE NIGHT BEFORE DENTAL APPOINTM ENT, TAKE ONE TABLET ONE HOUR PRIOR TO DENTAL APPOINTM ENT, THEN BRING THIRD TABLET WITH YOU TO DENTAL APPOINTM ENT. DO NOT DRIVE active Not Available Not Available No t Available Topamax 25 mg tablet 1 at hs x one week, then 2 at hs. 2021 active Not Available Not Available Not Avai lable azithromy brittany 250 mg tablet TAKE 2 TABLETS BY MOUTH ON DAY 1, AND THEN TAKE 1 TABLET BY MOUTH ONCE A DAY ON DAY 2 THROUGH DAY 5 active Not Available Not Available No t Available ibuprofen 800 mg tablet TAKE 1 TABLET BY MOUTH EVERY 8 HOURS NEEDED FOR PAIN active Not Available Not Available No t Available Risperdal 2 mg tablet Daily 01/18 completed Duration : 90 days;Bryson quency: daily;Me dication Descript ion: risperid one; Dosage:1 ; Route:or al; refills: 0 Not Available Not Available Not Available ondansetr on HCl 4 mg tablet TAKE 1 TABLET BY MOUTH EVERY 6 HOURS NEEDED FOR NAUSEA AND VOMITING active Not Available Not Available No t Available sertralin e 100 mg tablet TAKE 1 & 1/2 (ONE & ONE-HALF ) TABLETS BY MOUTH ONCE DAILY active Not Available Not Available No t Available ciproflox acin 500 mg tablet TAKE 1 TABLET BY MOUTH TWICE DAILY FOR 7 DAYS active Not Available Not Available No t Available quetiapin e 100 mg tablet TAKE 1 & 1/2 (ONE & ONE-HALF ) TABLETS BY MOUTH EVERY DAY AT BEDTIME active Not Available Not Available No t Available oxycodone -acetamin ophen 5 mg-325 mg tablet TAKE 1 TABLET BY MOUTH EVERY 6 HOURS NEEDED FOR PAIN active Not Available Not Available No t Available lidocaine HCl 2 % mucosal solution APPLY A 2ML/THIN FILM TO AFFECTED AREA EVERY 4 HOURS NEEDED FOR PAIN active Not Available Not Available No t Available levofloxa brittany 500 mg tablet TAKE 1 TABLET BY MOUTH EVERY 24 HOURS active Not Available Not Available No t Available methylpre dnisolone 4 mg tablets in a dose pack TAKE DIRECTED active Not Available Not Available No t Available ondansetr on 4 mg disintegr ating tablet DISSOLVE 1 TABLET ON THE TONGUE EVERY 6 HOURS FOR 2 DAYS NEEDED FOR NAUSEA OR VOMITING active Not Available Not Available No t Available medroxypr ogesteron e 150 mg/mL intramusc ular syringe INJECT 150MG INTRAMUS CULARLY EVERY 3 MONTHS active Not Available Not Available No t Available chlorhexi dine gluconate 0.12 % mouthwash RINSE WITH 15ML FOR TWO MINUTES AND SPIT, USE TWICE DAILY active Not Available Not Available No t Available Zoloft active Not Available Not Availa ble Not Available Vitamin C active Not Available Not Halley ilable Not Available cranberry active Not Available Not Halley ilable Not Available Imitrex active Not Available Not Avail able Not Available Zithromax Z-Jimmy 02/17 completed Not Available Not Available Not Available Focalin 01/18 completed Medicati on Descript ion: dexmethy lphenida te; Route:or al; refills: 0 Not Available Not Available Not Available Intuniv ER 01/18 completed Medicati on Descript ion: guanfaci ne; Route:or al; refills: 0 Not Available Not Available Not Available Ubrelvy 100 mg tablet TAKE 1 TABLET BY MOUTH DAILY NEEDED active Not Available Not Available No t Available Nurtec ODT 75 mg disintegr ating tablet Take by oral route for 10 days. 02/22 completed PA nic castrejon sent in Ubrelvy Not Available Not Available Not Available Vitals Date Recorded Body height Body mass index (BMI) Body mass index (BMI) [Percentile] Per age and sex Body weight Provider Name and Address Organization Details Last Updated DateTime 07/19/2023 157.48 cm 29.6 kg/m2 92 % 14637.96 g Shannon Wilson [facility] 07/19/2023 15:11:09 Date Recorded Body temperature Body weight Body mass index (BMI) Body height Heart rate Systolic And Diastolic Provider Name and Address Organization Details Last Updated DateTime 7 97.6 [degF] 95560.2 7 g 22.7 kg/m2 156.21 cm 86 /min 116/71 mm[Hg] Hetal Bhupinder [facility] 7 12:04:18 Date Recorded Body weight Oxygen saturation Heart rate Systolic And Diastolic Provider Name and Address Organization Details Last Updated DateTime 02/17/2022 22536.08 g 99 % 107 /min 122/84 mm[Hg] Adrienne Perez [facility] 02/17/2022 08:11:03 Social History Question Answer Notes LastModified by Organizat ion Details LastModified Time Tobacco Smoking Status Former Smoker Shannon robledo, [facility] 07/19/2023 15:13:57 What Is Your Relationship Status? Single [email or web address] Information not available 07/19/2023 Has Tobacco Cessation Counseling Been Provided? No [email or web address] Information not available 07/19/2023 Sex: Unknown Functional Status Question Answer Note LastModified by Organizat ion Details LastModified Time Do you use any illicit or recreational drugs? No [email or web address] Information not available 07/19/2023 Do you or have you ever used any other forms of tobacco or nicotine? Yes [email or web address] Information not available 07/19/2023 What is your level of alcohol consumption? None [email or web address] Information not available 07/19/2023 Do you or have you ever used smokeless tobacco? Never used smokeless tobacco [email or web address] Information not available 07/19/2023 Are you currently employed? Yes [email or web address] Information not available 07/19/2023 What is your occupation? nurse [email or web address] Information not available 07/19/2023 Do you or have you ever used e-cigarettes or vape? Current user of electronic cigarettes [email or web address] Information not available 07/19/2023 Mental Status None recorded. Family History Relationship Description Onset Age of this Age Resolved Age Notes LastModified by Organization Details LastModified Time Unspecified Relation Family history of malignant neoplasm roberto veliz other [email or web address] Not available 01/17/2017 16:57:47 Unspecified Relation Diabetes mellitus roberto other [email or web address] Not available 01/17/2017 16:57:56 Unspecified Relation Hypertensive disorder roberto veliz other [email or web address] Not available 01/17/2017 16:58:05 Unspecified Relation Cerebrovascu lar accident [email or web address] Not available 01/17/2017 16:58:13 Medical History Condition Response Anxiety Disorder Y Kidney Stones Y Depression Y Gynecological HistoryNo gynecological history recorded. 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 Chronic tonsillitis 9097 9004 J35.01 Streptococ tiago sore throat 98336486 J02.0 - recurrent Breath sme lls unpleasant 10173136 R19.6 [id number] ROSA PHILLIPS III, MD SURGERY SCHEDULE [address] [place] [address] 03/12/2017 09:35:46 03/12/2017 09:41:35 [id number] JOHN RICKETTS MD NEUROLOGY [facility] [address] [place] [id number] 02/17/2022 07:52:12 02/17/2022 09:00:52 Migraine 22431403 G43.909 New daily persistent headache 1092078674 08659 G44.52 [id number] LUCIANA HILLIARD JR, MD [facility] [address] [address] [address] [place] [id number] 07/19/2023 14:38:17 07/19/2023 15:23:56 Acute urinary tract infection 073579133 N39.0 History of vesicoureteric reflux [id number] Z87.448 Recurrent urinary tract infection [id number] N39.0 Patient plans to use [employer] [facility] Concerns Section Related Observation LastModified by Organization Detai ls LastModified Time None Recorded Concern Status LastModified by Organization Details LastModified Time None Recorded Advance Directives Directive None Recorded Payers Insurance Date Sequence Insurance Name Policy Number Policy White Covered Member ID White Member ID Guarantor Name 02/18/2024 1 [place] [id number] 1 Kojo Yung [id number] Joan Yung 09/10/2018 PAYMENT PLAN Joan Yung Notes Date Note Type Note Provider Name and Address Organization Details Recorded Time 01/18/2017 text/html Joan comes in today for evaluation of cryptic tonsils. She was recently tested for strep throat and was told her tonsils were cryptic. She had a tonsillectomy at the age of 1 or 2. She has a history of recurrent strep throat. She gets strep throat 3 times per year for 7 years now. She does experience halitosis as well. She does not snore excessively now but did prior to having a partial tonsillectomy. Joan is in very good health otherwise. ROSA PHILLIPS III, MD [facility] [place], [phone], [facility] 01/18/2017 16:17:04 02/17/2022 text/html This is an 16 year-old RH female who presents for evaluation of migraine.She was accompanied by her boyfriend's mother. She has been bothered by migraines for about six mos. Initially these were present every couple of weeks; lately they have been present daily or nearly so, past two mos. Usually not present upon awakening but build up later in the day; some days mild and some days bad. Starts frontally and at the temples, can be like pressure or like her head is on fire or stabbing pain, lucila when she stands up. +nausea, emesis. + photophonophobia. May last a few hours or several. Twice a week, gets bad migraine. Sleep helps. Initially, ibuprofen was helpful, but then this lost efficacy, and she tried other OTC meds without help. Then around the 02 of January, she was at work and had bad migraine and emesis and her nose was bleeding, and she went to the ER. She was given Imitrex injection - probably helped - but which made her feel hot and like her throat was closing. She was sent home with Imitrex po which she did not try until last nite, and this helped some too but again she had some SE. No clear triggers for headache. [place], [phone], [facility] 02/17/2022 08:57:31 07/19/2023 text/html Patient is in today with a history of recurrent UTI. She has been followed by pediatric urology. She has a history of vesicoureteral reflux. She underwent bilateral ureteral reimplantation 14 years ago. She continues to have her current urinary tract infections manifested with dysuria and flank pain. She is no longer on prophylactic antibiotics. She has used self start antibiotics. She has not had any recent upper tract imaging. LUCIANA HILLIARD JR, MD [address] [place], [id number], [facility] 07/21/2023 11:06:59 OBGyn Episode No OBEpisode recorded.
[2025-04-24 23:30] LABS: Bilirubin,Urine Negative (Negative); Color,Urine YELLOW (Yellow); Glucose,Urine (UA) Negative (Negative); Ketones,Urine Negative (Negative); Leukocyte Esterase,Urine Negative (Negative); PH,Urine 6.5 (5.0-8.5); Protein,Urine Negative (Negative); Specific Gravity, Urine 1.025 (1.005-1.030); Urobilinogen,Urine 1.0 EU/dl (0.2)
[2025-04-24 23:38] LABS: Hematocrit 37.0 % (37.0-47.0); Hemoglobin 12.6 g/dL (12.2-16.2); Immature Granulocytes % 0.2 %; Mean Corpuscular HGB Conc 34.1 g/dL (31.8-35.4); Mean Corpuscular Hemoglobin 28.2 pg (27.0-31.2); Mean Corpuscular Volume 82.8 fl (81-99); Nucleated Red Blood Cells % 0 %; Platelet Count 123 K/mm3 (142-424); Red Blood Count 4.47 M/mm3 (4.20-5.40); Red Cell Distribution Width-SD 40.8 fL; White Blood Count 9.6 K/mm3 (4.8-10.8)
[2025-04-24 23:47] LABS: Alanine Aminotransferase 18 U/L (12-78); Albumin Level 4.9 g/dl (3.5-5.0); Albumin/Globulin Ratio 1.5 (1.1-1.8); Alkaline Phosphatase 62 U/L (38-126); Anion Gap 13.0 mEq/L (5-15); Aspartate Amino Transferase 30 U/L (14-36); Bilirubin,Total 0.4 mg/dl (0.2-1.3); Blood Urea Nitrogen 17 mg/dl (7-17); Calcium 9.7 mg/dl (8.4-10.2); Carbon Dioxide 25 mmol/L (22.0-30.0); Chloride 102 mmol/L (98-107); Creatinine Clearance Estimated 115 mL/min (50-200); Creatinine,Serum 0.80 mg/dl (0.52-1.04); Estimated Glomerular Filt Rate 90 ml/min (>60); GFR (African American) 109 ML/MIN (>60); Globulin 3.3 g/dL (1.3-3.2); Glucose 95 mg/dl (74-100); Lipase 33 U/L (23-300); Potassium 4.0 mmoL/L (3.5-5.1); Sodium 136 mmol/L (136-145); Total Protein,Serum 8.2 g/dl (6.3-8.2)
[2025-04-24 23:47] LABS: Bacteria,Urine 1+ /lpf; Squamous Epithelial Cell,Urine 20-50 #/hpf (0-5)
[2025-04-24 23:48] LABS: Amorphous Sediment,Urine 3+ /lpf
[2025-04-24] MEDS: KETOROLAC 30MG/ML VIAL 30 MG IV (23:51)
--- NOTE | 2025-04-25 00:26 | [facility].EDGENADL ---
Discharge Plan Disposition Patient Disposition: Home, Self-Care Condition: Good Prescriptions Prescriptions: New ondansetron 4 mg tablet,disintegrating 4 mg PO Q6H PRN (Reason: nausea and vomiting) Qty: 10 0RF No Action minocycline 100 mg capsule 100 mg PO BID Qty: 60 11RF trazodone 50 mg tablet 50 mg PO QHS PRN (Reason: sleep) Qty: 30 1RF spironolactone 25 mg tablet 25 mg PO DAILY Patient Comments: TAKE 2 TABLETS BY MOUTH ONCE DAILY oseltamivir [Tamiflu] 75 mg capsule 75 mg PO BID 5 Days Qty: 10 0RF Vraylar 1.5 mg capsule 1.5 mg PO DAILY Qty: 90 0RF sertraline [Zoloft] 100 mg tablet 150 mg PO DAILY Qty: 45 2RF Referrals Follow up/Referrals: Niyah Choi APRN [Primary Care Provider, Family Practice] - See instructions Activity Restrictions/Add. Instructions Additional Instructions/Restrictions: You were evaluated in the ER and are believed to be appropriate for discharge at this time. Take the prescribed Zofran as needed for nausea and vomiting. Drink plenty of water, Gatorade, Pedialyte to stay hydrated. Take Tylenol and ibuprofen at home as needed for pain, exceed recommended dose on the bottle. Drink water and eat a small snack each time you take his medications to avoid side effects. As discussed, call your [facility] [facility] and make an appointment for outpatient follow-up in 2 to 3 days. Return to the ER with any new, worsening, or otherwise concerning symptoms. Clinical Impressions Clinical Impression: Abdominal pain, suprapubic, Abnormal vaginal bleeding Instructions Patient Instructions: DI for Acute Abdominal Pain Print Language Print Language: Bermudian Discharge ED Provider: Rosalee Gilbert General Adult HPI General Chief complaint: Abdominal Pain Stated complaint: vaginal bleeding, abd pain Time Seen by Provider: 04/24/25 23:12 Mode of Arrival: Ambulatory Source of Information: Patient Description of Symptoms (Recalled from ER Triage Doc. by RN): PT presents to the ED for evaluation of vaginal bleeding. PT stated x2 weeks ago she began passing large clots x2 days, bleeding stopped then started again x4 days later and was soaking pads within 30 minutes this occurred x3 days. now PT is just spotting but experiencing stabbing abd pain. History of Present Illness HPI narrative: 20-year-old female presents to the ER for evaluation of low abdominal pain. Patient reports 2 weeks ago she had large clots and brisk bleeding saturating a super plus tampon every 30 minutes. She states it only lasted about 2 days then stop bleeding and just had mild spotting until a few days later she started having heavy bleeding again which has again since stopped. She states the last few days she has just had mild spotting. She denies being . Denies dysuria or hematuria. She states she is having sharp, deep lower abdominal pain. She demonstrates to the midline suprapubic area and states symptoms have been going on for approximately 24 hours without improvement despite taking Tylenol, she has gradual worsening. No radiation. She denies any recent rough sex or sex with toys, no vaginal injuries known, she denies any dyspareunia. Reports mild nausea but no vomiting, diarrhea, or constipation. No pain with defecation. Patient reports she came to the ER tonight because of the abdominal pain, not because of the abnormal bleeding. She states she typically would have her period around the 12th so the heavy bleeding that happened a few weeks ago was slightly premature but she did not think much of it since it has since resolved. Denies abnormal vaginal discharge. She does not take any contraceptives. Denies fevers or chills, denies any unexpected weight gain or loss. States she has been having hot and cold flashes randomly. No history of easy bleeding or clotting. She has not seen her [facility] [facility] for these complaints. She has previously been once but sustained a miscarriage a few years ago. Related Data Home Medications ?Medication ?Instructions ?Recorded ?Confirmed spironolactone 25 mg tablet 25 mg PO DAILY 09/03/24 09/03/24 Previous Rx's ?Medication ?Instructions ?Recorded minocycline 100 mg capsule 100 mg PO BID #60 caps 07/03/24 trazodone 50 mg tablet 50 mg PO QHS PRN sleep #30 tabs 07/31/24 oseltamivir 75 mg capsule (Tamiflu) 75 mg PO BID 5 days #10 caps 09/03/24 cariprazine 1.5 mg capsule 1.5 mg PO DAILY #90 caps 10/10/24 (Vraylar) sertraline 100 mg tablet (Zoloft) 150 mg (1.5 x 100 mg) PO DAILY #45 10/10/24 tabs ondansetron 4 mg disintegrating 4 mg PO Q6H PRN nausea and 04/25/25 tablet vomiting #10 tabs Allergies Allergy/AdvReac Type Severity Reaction Status Date / Time cefdinir (From Omnicef) Allergy Hives Verified 09/03/24 10:41 codeine Allergy Hives Verified 09/03/24 10:41 [facility] Disclaimer: The information contained in this section may have been updated after the patient was seen, as this information can be updated by other users. Medical History , TEST DESKMAN) Urinary tract infection Kidney stone Depression Migraines Generalized anxiety disorder Mood disorder Surgical History , TEST DESKMAN) History of tympanostomy tube placement Social History , TEST DESKMAN) Smoking Status: Current every day smoker tobacco type: e-cigarettes alcohol intake: never substance use type: marijuana (none in 8 months) current occupational status: other Travel in the last 8 weeks?: None number of children: 0 Have you lived/traveled outside [place] in past 30 days?: No Contact w/someone who lives/traveled outside US past 30 days?: No Exposure to someone with infectious disease in past 14 days?: No Do you have a fever (greater than 100.4 F or 38 C)?: No Have you tested positive for COVID-19?: No Exposed to someone with COVID-19 in past 14 days?: No Do you have a sore throat?: No Do you have a cough?: No Do you have any weakness?: No Do you have any diarrhea?: No Are you experiencing any unusual bleeding?: Yes Do you have any muscle aches/pain?: No Do you have any abdominal pain?: Yes Are you experiencing loss of taste or smell?: No Other Medical History Have you received the Flu Vaccine for this season: Yes Have you received the Pneumonia Vaccine: No ROS Obtained: Yes Systems reviewed as appropriate & no additional complaints except as documented Per HPI Physical Exam General General appearance: alert and in no apparent distress Head Head exam: atraumatic and normocephalic Eye Eye exam: Present PERRL and EOMI ENT ENT exam: Present mucous membranes moist Neck Neck exam: Present normal inspection and full ROM Chest Chest inspection: Present symmetric chest wall rise Respiratory Respiratory exam: Present normal lung sounds bilaterally; Absent respiratory distress, wheezes or stridor Cardiovascular Cardiovascular exam: Present regular rate and normal rhythm Abdominal Exam Abdominal exam: Present soft and tenderness (Mild suprapubic); Absent distention, guarding, rebound or rigidity Extremities Exam Extremities exam: Present full ROM and normal capillary refill; Absent edema Neurological Exam Neurological exam: Present alert and oriented X3; Absent motor sensory deficit Psychiatric Psychiatric exam: Present normal affect and normal mood Skin Skin exam: Present warm and dry Medical Decision Making Medical Records Medical records reviewed: Yes I reviewed the patient's medical records. Screening: Per USPSTF and CDC recommendations, given the prevalence of disease in our region, it is our hospital?s policy to screen for HIV and viral Hepatitis for all patients aged 18 and over and those with ongoing risk factors. Michael Inquiry Pt receiving controlled substance: No Vital Signs: 04/24/25 23:20 04/25/25 01:16 Temperature 97.9 F 97.9 F Temperature Source Oral Pulse Rate 77 Pulse Rate [Right] 108 H Respiratory Rate 18 18 Blood Pressure 120/71 Blood Pressure [Right Arm] 142/105 H Blood Pressure Mean [Right Arm] 117 02 Sat by Pulse Oximetry 100 100 Oxygen Delivery Method Room Air Room Air Lab Data Lab Results 04/24/25 23:15: Urine Color Yellow, Urine Appearance Sl cloudy, Urine pH 6.5, Ur Specific [place] 1.025, Urine Protein Negative, Urine Glucose (UA) Negative, Urine Ketones Negative, Urine Blood 1+ A, Urine Nitrate Negative, Urine Bilirubin Negative, Urine Urobilinogen 1.0, Ur Leukocyte Esterase Negative, Urine RBC 5-10, Urine WBC 3-5, Ur Squamous Epith Cells 20-50, Amorphous Sediment 3+, Urine Bacteria 1+ 04/24/25 23:28: WBC 9.6, RBC 4.47, Hgb 12.6, Hct 37.0, MCV 82.8, MCH 28.2, MCHC 34.1, RDW 13.6, Plt Count 123 L, MPV 10.8 H, Neut % (Auto) 51.2, Lymph % (Auto) 40.0, Hubbard % (Auto) 6.2, Eos % (Auto) 1.9, Baso % (Auto) 0.5, Neut # (Auto) 4.9, Lymph # (Auto) 3.8, Hubbard # (Auto) 0.6, Eos # (Auto) 0.2, Baso # (Auto) 0.1, PT 10.6, INR 0.95, APTT 23.1, Sodium 136, Potassium 4.0, Chloride 102, Carbon Dioxide 25, Anion Gap 13.0, BUN 17, Creatinine 0.80, Estimated Creat Clear 115, Estimated GFR 90, Est GFR ( Amer) 109, Glucose 95, Calcium 9.7, Total Bilirubin 0.4, AST 30, ALT 18, Alkaline Phosphatase 62, Total Protein 8.2, Albumin 4.9, Globulin 3.3 H, Albumin/Globulin Ratio 1.5, Lipase 33, TSH 1.93, Free T4 1.22, HCG, Quant < 2 04/24/25 23:32: Blood Type A Positive, Antibody Screen Negative 04/25/25 00:13: Lactate 0.9 04/25/25 01:10: Urine Color Yellow, Urine Appearance Sl cloudy, Urine pH 7.5, Ur Specific [place] 1.010, Urine Protein Negative, Urine Glucose (UA) Negative, Urine Ketones Negative, Urine Blood Trace-i, Urine Nitrate Negative, Urine Bilirubin Negative, Urine Urobilinogen 0.2, Ur Leukocyte Esterase Negative, Urine RBC Occasional, Urine WBC Occasional, Ur Squamous Epith Cells Occasional, Amorphous Sediment 3+ 04/24/25 23:28 04/24/25 23:28 Orders (Tests/Meds): ED MEDICATIONS Generic Name Dose Route Start Last Admin Trade Name Freq PRN Reason Stop Dose Admin Sodium Chloride 10 ml 04/25/25 00:28 04/25/25 00:30 Sodium Chloride 0.9% 10ml Syr (Rad Only) IV 05/25/25 00:27 10 ml NEEDED PRN Administration Maintain IV Site Discontinued Medications Generic Name Dose Route Start Last Admin Trade Name Freq PRN Reason Stop Dose Admin Iopamidol 75 ml 04/25/25 00:28 04/25/25 00:29 Iopamidol-370 (76%);100ml Bottle IV 04/25/25 00:29 75 ml ONCE ONE Administration Ketorolac Tromethamine 30 mg 04/24/25 23:20 04/24/25 23:51 Ketorolac 30mg/Ml Vial IV 04/24/25 23:21 30 mg ONCE ONE Administration Ondansetron HCl 4 mg 04/25/25 00:32 04/25/25 01:14 Ondansetron 4mg/2ml Vial IV 04/25/25 00:33 4 mg ONCE ONE Administration ORDERS Category Date Time Status Type and Screen Stat BBK 04/24/25 23:[address] abdomen pelvis w con Stat Cat Scan 04/24/25 23:20 Completed CBC w/Auto Diff [Complete Blood Count Auto Diff] Stat Lab 04/24/25 23:28 Completed CMP [Comprehensive Metabolic Panel] Stat Lab 04/24/25 23:28 Completed Free T4 (Free Thyroxine) Stat Lab 04/25/25 00:14 Completed HCG,Quantitative Stat Lab 04/24/25 23:28 Completed Lactic Acid Stat Lab 04/24/25 23:12 Completed Lipase Stat Lab 04/24/25 23:28 Completed PT INR [Prothrombin Time INR] Stat Lab 04/25/25 00:14 Completed PTT [Activated Partial Thrombo Time] Stat Lab 04/25/25 00:14 Completed TSH [Thyroid Stimulating Hormone] Stat Lab 04/25/25 00:14 Completed Urinalysis and Microscopic Stat Lab 04/24/25 23:15 Completed Urinalysis and Microscopic Stat Lab 04/25/25 01:10 Completed Urine Chlam/Gono/Trich ([facility]) Stat Lab 04/25/25 00:14 Received Medical Decision Narrative: In summary, this 20-year-old female presents to the emergency department today with lower abdominal/pelvic pain, vaginal spotting but patient is primarily concerned about the pain. On initial evaluation patient is hemodynamically stable, afebrile, GCS 15, cardiopulmonary exam benign, abdominal exam with mild suprapubic tenderness to palpation but no rebound or guarding, no peritonitic findings, remainder of exam benign. Patient declined pelvic exam.. Differential diagnosis includes but is not limited to urinary tract infection, appendicitis, I considered the possibility of ovarian mass, fibroid, I did consider the possibility of ovarian torsion but I have extremely low suspicion for this since patient did not have acute onset of severe pain and has had gradual progression. I considered electrolyte abnormality, dehydration, , among others. Based on these concerns, I ordered hematologic and serum labs, urinalysis, CT abdomen pelvis, and urine STI testing. Patient received Toradol, Zofran. Labs personally reviewed demonstrate no leukocytosis or anemia, mild thrombocytopenia but nonactionable at this time. PT/INR and APTT normal reassuring against coagulopathy. CMP unremarkable, nonactionable, lactate 0.9 reassuring against organ damage, hCG undetectable, test negative. Initial UA was significantly contaminated with squamous cells, repeat UA with trace blood, only occasional squamous cells and WBCs. Nitrate negative. Will not treat this as infection at this time. CT abdomen pelvis personally interpreted demonstrates no acute intra-abdominal pathology, specifically no ovarian mass that would be causing torsion, no space-occupying lesion in the low abdomen, no appendicitis appreciated. See radiology read for final interpretation. Patient had a documented temperature of 100 ?F but had been afebrile and was not feeling feverish or chills, I took her temperature myself and it was 96.7 without intervention. On reassessment patient states her symptoms are improved and she is resting comfortably. She is comfortable with being discharged. I recommended follow-up with [facility] [facility]. I prescribed Zofran for outpatient management. Patient was given instructions on symptomatic management, follow up instructions, and return precautions for the emergency department. Patient indicated understanding and was discharged in stable condition. Critical Care Critical Care Time Critical Care Time: No
[2025-04-25 00:27] LABS: Activated Partial Thrombo Time 23.1 seconds (22.8-30.6); INR 0.95 (0.9-1.1); Prothrombin Time 10.6 seconds (10.1-12.5)
[2025-04-25] MEDS: IOPAMIDOL-370 (76%);100ML BOTTLE 75 ML IV (00:29)
[2025-04-25] MEDS: SODIUM CHLORIDE 0.9% 10ML SYR (RAD ONLY) 10 ML IV (00:30)
[2025-04-25 00:56] LABS: Free T4 (Free Thyroxine) 1.22 ng/dl (0.78-2.19)
[2025-04-25 01:10] LABS: Thyroid Stimulating Hormone 1.93 uIU/mL (0.465-4.68)
[2025-04-25] MEDS: ONDANSETRON 4MG/2ML VIAL 4 MG IV (01:14)
[2025-04-25 01:15] LABS: Microscopic, Urine URINE MICROSCOPIC (MICROSCOPIC)
[2025-04-25 01:16] VITALS: BP 120/71; PULSE 77; RESP 18; TEMP 36.6; O2SAT 100
[2025-04-25 01:16] LABS: Bilirubin,Urine Negative (Negative); Color,Urine YELLOW (Yellow); Glucose,Urine (UA) Negative (Negative); Ketones,Urine Negative (Negative); Leukocyte Esterase,Urine Negative (Negative); PH,Urine 7.5 (5.0-8.5); Protein,Urine Negative (Negative); Specific Gravity, Urine 1.010 (1.005-1.030); Urobilinogen,Urine 0.2 EU/dl (0.2)
[2025-04-25 01:27] LABS: RBC,Urine Occasional #/hpf (0-3); WBC,Urine Occasional #/hpf (0-3)
[2025-04-25 01:28] LABS: Amorphous Sediment,Urine 3+ /lpf; Squamous Epithelial Cell,Urine Occasional #/hpf (0-5)
[2025-04-25 02:02] VITALS: BP 120/71; PULSE 88; RESP 16; TEMP 36.8; O2SAT 98
== END 2025-04-25 02:08 | disposition home or self-care (01) ==
PROVIDERS: Emergency Provider Emergency Medicine; PCP Nurse Practitioner
DX: R10.24 Suprapubic pain (principal); N93.9 Abnormal uterine and vaginal bleeding, unspecified
CPT/HCPCS: 74177; 80053; 81001; 83605; 83690; 84439; 84443; 84702; 85025; 85610; 85730; 86850; 87491; 87591; 87661; 96374; 96375; 99285; J1885; J2405; Q9967